=== PATIENT | female | born 1930 | race Caucasian/White ===

== ENCOUNTER → 2016-05-10 | Outpatient (CLI) | payer OTHER ==
[~2016-05-10] MED LIST: NA BICARBONATE 50 MEQ/50 ML VIAL ONE
== END ==
LOC: FIMAGING 11:00
PROVIDERS: ATTEND Internal Medicine Hematology & Oncology
PROC: 0WB83ZX Excision of Chest Wall, Percutaneous Approach, Diagnostic (ICD-10-PCS; principal; 2016-05-10)
DX: C76.1 Malignant neoplasm of thorax (principal); Z85.3 Personal history of malignant neoplasm of breast

== ENCOUNTER → 2016-06-10 | Outpatient (CLI) | payer OTHER | LOC: BHCLAF 14:45 | PROVIDERS: ATTEND Internal Medicine Cardiovascular Disease | DX: R94.31 Abnormal electrocardiogram [ECG] [EKG] (principal); R60.9 Edema, unspecified | CPT/HCPCS: 93306-PO ==

== ENCOUNTER 2016-08-09 12:01 | Emergency (ER) | payer OTHER ==
[2016-08-09 13:07] VITALS: PULSE 78
--- NOTE | 2016-08-09 13:20 | EDPHY ---
H & P Stated Complaint: LOW BP, TOOK ANTIHYPERTENSIVE Time Seen by Provider: 08/09/16 13:00 HPI/ROS: HPI: 86-year-old female presents to emergency department with chief concern hypertension. Reports a blood pressure of 80/50 after she took her lisinopril and metoprolol this morning. Denied fever, dizziness, headache, shortness of breath, chest pain, nausea or vomiting. Takes lisinopril 2.5 mg and metoprolol/ HCTZ 50/25 mg once daily. 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 She wears 2 L O2 nasal cannula. Past medical history also includes hypertension, hyperlipidemia, pacemaker, breast CA, bone CA. Primary care provider is Dr. Dacosta. ROS:10 point review of systems is negative other than as stated in HPI Source: Patient, Family Exam Limitations: No limitations - Personal History Current Tetanus Diphtheria and Acellular Pertussis (TDAP): Yes Tetanus Vaccine Date: < 10 YEARS - Medical/Surgical History Hx Asthma: No Hx Chronic Respiratory Disease: Yes Hx Diabetes: No Hx Cardiac Disease: Yes Hx Renal Disease: No Hx Cirrhosis: No Hx Alcoholism: No Hx HIV/AIDS: No Hx Splenectomy or Spleen Trauma: No Other PMH: HTN, high chol, pacemaker, respiratory problems, breast cancer, left mastectomy, BONE CANCER - Family History Significant Family History: No pertinent family hx - Social History Smoking Status: Never smoked Alcohol Use: Rarely Drug Use: None Additional Social History: , on hospice for osteosarcoma - Physical Exam Exam: Temp 36.9, heart rate 74, blood pressure 108/66, 80% on room air. Placed on 2 L nasal cannula O2 saturation 95%. General: Awake, alert, calm, cooperative. No acute distress. Head: Normalocephalic. Atraumatic. EENT: PERRLA. EOMI. No pallor or injection. Anicteric. No nystagmus. No injection. Neck: Supple, nontender. Enlarged AC nodes. Full range of motion. No meningismus. Enlarged soup broth clavicular nodes. Respiratory: Breathing unlabored. Breath sounds diminished left lower lobe, rhonchorous right lower lobe. CV: Chest nontender, atraumatic. Heart rate regular. No murmur, distal pulses 2+ bilaterally. Brisk cap refill all extremities. GI: Abdomen soft, nontender. Bowel sounds normoactive and positive x4 quadrants. Neuro: Alert. Oriented x 3. Speech clear. Nonfocal cranial nerves throughout. Sensation intact all extremities. Skin: Skin warm, dry, intact. Skin turgor normal. Extremities: Full range of motion in all 4 extremities. Strength 5+ all extremities. Profound left lower extremity and left upper extremity lymphedema. 2+ DP/PT bilaterally. Brisk cap refill. Constitutional: Initial Vital Signs Temperature (C) 36.9 C 08/09/16 12:05 Heart Rate 74 08/09/16 12:05 Blood Pressure 108/66 08/09/16 12:05 O2 Sat (%) 80 L 08/09/16 12:05 O2 Delivery Mode Room Air,Nasal Cannula Allergies/Adverse Reactions: No Known Allergies Allergy (Verified 08/09/16 12:12) Home Medications: Medication Instructions Recorded Aspirin [Aspirin 81mg (*)] 81 mg PO HS 10/18/15 LISINOPRIL 2.5 mg PO HS 10/18/15 Metoprolol/Hydrochlorothiazide 1 each PO DAILY 10/18/15 [Metoprolol-Hctz 50-25 mg Tab] SIMVASTATIN [Zocor] 20 mg PO DAILY 10/18/15 Vit C/Vit E/Lutein/Min/Tilden-3 2 each PO DAILY 10/18/15 [Ocuvite Softgel] Medical Decision Making ED Course/Re-evaluation: 78-year-old female presents to emergency department with chief concern hypotension. Blood pressure dropped to 80/46 per daughter while at home after taking antihypertensive medication this morning. On arrival to ED, oxygen saturation 80% on room air. Patient wears 2 L O2 nasal cannula at all times, and her oxygen was not on at this time. On 2 L oxygen saturation increased to 96%. On arrival to ED, blood pressure 108/66. Orthostatics performed and are within normal. At time of exam, patient has no dizziness, no chest pain, no shortness of breath. She will be discharged home to follow up with primary care. Her and daughter are present. Plan was discussed with them. They are all comfortable with the plan and agree to follow up with primary care. I have also recommended that they check blood pressure in the morning prior to taking her antihypertensive medications. Verbalize understanding of this plan. Differential Diagnosis: Differential diagnosis includes but is not limited to medication induced hypotension, dehydration, advanced osteosarcoma Departure - Departure Disposition: Home, Routine, Self-Care Clinical Impression: Hypotension Qualifiers: Hypotension type: unspecified hypotension type Qualified Code(s): I95.9 - Hypotension, unspecified Condition: Good Instructions: Hypotension (ED) Additional Instructions: Please follow up with primary care tomorrow for recheck-without fail-When you call to schedule appointment, please let the office know you are an "ER follow up" appointment" Take blood pressure 1st thing in the morning every morning. If your blood pressure is less than 90 systolic, do not take medications and call primary care. Referrals: Mary Grace Dacosta MD [Primary Care Provider] - As per Instructions
[2016-08-09 13:45] VITALS: BP 104/63; RESP 20; TEMP 97.9; O2SAT 95
== END 2016-08-09 13:45 | disposition home or self-care (01) ==
DX: I95.9 Hypotension, unspecified (principal); I10 Essential (primary) hypertension; Z79.82 Long term (current) use of aspirin; Z85.3 Personal history of malignant neoplasm of breast; Z85.830 Personal history of malignant neoplasm of bone; Z95.0 Presence of cardiac pacemaker